=== PATIENT | female | born 1965 | race Caucasian/White ===

== ENCOUNTER 2022-11-23 10:45 | Emergency (ER) | payer SELFPAY ==
[2022-11-23 10:55] VITALS: BP 146/88; PULSE 93; RESP 22; TEMP 36.6; O2SAT 97; BMI 36.2
--- NOTE | 2022-11-23 11:10 | EXP.UTC ---
Discharge Plan Disposition Patient Disposition: Home, Self-Care Condition: Good Prescriptions Prescriptions: New penicillin V potassium 500 mg tablet 500 mg PO BID 10 Days Qty: 20 0RF No Action nitrofurantoin monohyd/m-cryst 100 mg capsule 100 mg PO Q12H 5 Days Qty: 10 0RF Rx Instructions: must administer with a meal/food Referrals Follow up/Referrals: Ariel Marvin MD [Primary Care Provider] - See instructions Activity Restrictions/Add. Instructions Additional Instructions/Restrictions: *Monitor Temp, Over the counter Motrin or Tylenol as directed/as needed Tylenol every 4 hours and Motrin every 6 hours (as long as your family doctor has told you that you can take it) for fever or pain. and straight to ER if unable to lower temp less than 101.0 after medication given *Warm salt water gargles may help to soothe the throat *Throat Lozenges? *Warm fluids like tea with honey may help to soothe the throat? *Sleep elevated *Humidifier/Vaporizer *If you did not take Penicillin shot or was unable to, start taking antibiotic immediately and make sure that you take it for the FULL length of time although you should start to feel better in 24-48 hours *change toothbrush and toothpaste 24-48 hours after starting to take antibiotics so you do not reinfect yourself Monitor Temp. Tylenol and/or Ibuprofen as needed. ER if fever is no less than 101 despite alternating Tylenol and Ibuprofen * Encourage fluids, water, Gatorade, powerade, pedialyte if /toddler/or child *Cold fluids, popsicles and ice cream may feel good on his throat Follow up IMMEDIATELY for new or worsening symptoms or no Noticeable improvement over the next 48-72 hours. 911 for difficulty breathing or swallowing Clinical Impressions Clinical Impression: Strep throat Stand Alone Forms Stand Alone Forms: Work/School Release Instructions Patient Instructions: DI for Strep Throat, Strep Throat, Penicillin V Potassium Discharge ED Provider: Elsie Silva [facility] HPI General Stated complaint: Sore throat headache drainage Mode of Arrival: Ambulatory Source of Information: Patient Limitations: No Limitations Time Seen by Provider: 11/23/22 11:10 Description of Symptoms (Recalled from Triage Doc. 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 States that on her throat started hurting so she went to the pharmacy and they tested her for strep throat and it was negative States that since then it has continued to get worse and this morning she noticed little white blister like areas on her throat so she came in to get it checked Related Data Previous Rx's Medication Instructions Recorded nitrofurantoin 100 mg PO Q12H UTI 5 days #10 caps 10/26/18 monohydrate/macrocrystals 100 mg capsule penicillin V potassium 500 mg 500 mg PO BID 10 days #20 tabs 11/23/22 tablet Allergies Allergy/AdvReac Type Severity Reaction Status Date / Time No Known Allergies Allergy Verified 10/26/18 19:42 Worker's Comp Is this a Worker's Comp case?: No [facility] Disclaimer: The information contained in this section may have been updated after the patient was seen, as this information can be updated by other users. Social History Smoking Status: Never smoker alcohol intake: current current occupational status: employed Travel in the last 8 weeks: None household members: family housing: house ROS Obtained: Yes All systems reviewed & no additional complaints except as documented and Yes Systems reviewed as
[2022-11-23 11:17] LABS: UTC Strep Screen (Rapid) Positive (Negative)
[2022-11-23 11:19] VITALS: BP 146/88; PULSE 93; RESP 22; TEMP 36.6; O2SAT 97
== END 2022-11-23 11:21 | disposition home or self-care (01) ==
PROVIDERS: Emergency Provider Nurse Practitioner; PCP Internal Medicine Adolescent Medicine
DX: J02.0 Streptococcal pharyngitis (principal)
CPT/HCPCS: 87880; 99212; 99213; G0463

== ENCOUNTER 2025-02-10 08:16 | Outpatient (CLI) | payer SELFPAY ==
--- NOTE | 2025-02-10 08:20 | CT_ITS ---
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 A noncontrast coronary calcium scan was performed. A CT attenuation threshold of 130 Hounsfield units (HU) was used for the detection of calcium in contiguous voxels of 1 sq mm in area to be counted as individual lesions. A tube voltage of 120 KVp was used. The patient received no medications prior to the coronary calcium CT. Image Reconstruction Transaxial images were reconstructed at 0.67 mm slide thickness. Data was reviewed interactively on an advanced workstation capable of 2 and 3-dimensional displays in all conventional reconstruction formats, including multiplanar reformations, maximum intensity projections, curved multiplanar reformations, and volume rendered reconstructions. When applicable, selected routine images describing the relevant coronary anatomy and pathology were saved and sent to PACS. Complications None Technical Quality Overall image quality was good. Total DLP (Dose-Length Product) is 197.9 mGy-cm. The reported value represents the total of one or more individual components during the CT acquisition of this date and at this time, and as such, the same value may appear in more than one CT report depending on the interpreting/reporting physicians. COMPARISON None FINDINGS CT Coronary Calcium Scoring LMA (Left Main Artery) = 0 LAD (Left Anterior Descending) = 82 LCX (Left Coronary Circumflex) = 0 RCA (Right Coronary Artery) = 0 Total Calcium Score = 82 using the AJ-130 method. There is no identifiable calcification in the aortic valve, mitral annulus or mitral valve, pericardium, or myocardium. IMPRESSION -Coronary artery calcification is present. -Total Calcium Score (Agatston Score) = 82 using the AJ-130 method. -The observed calcium score of 82 is at 89th percentile for subjects of the same age, sex, and race/ethnicity. The interpretation of the calcium heart score is based on the following continuum*: 0 = no calcified plaque detected (risk of coronary artery disease is very low ??? less than 5%) 1-10 = calcium detected in extremely minimal levels (risk of coronary diseases is still low ??? less than 10%) 11-100 = mild levels of plaque detected with certainty (mild or minimal narrowing of heart arteries is likely) 101-400 = definite,at least moderate levels of plaque detected (relatively high risk of a heart attack within 3-5 years) >401-999 = extensive levels of plaque detected (high risk of heart attack, high levels of vascular disease are present, high likelihood of at least one significant coronary narrowing) *The calcium heart score quantifies the burden of coronary calcification/plaque in the coronary arteries. The calcium heart score does not evaluate the presence or the burden of non-calcified (i.e. soft) plaque. The coronary and cardiac findings of this Coronary Calcium CT were reviewed, reported, and signed by Cuauhtemoc Wong MD (Chief Design Engineer). Conclusion Electronically signed by : La Wong MD 02/12/2025 21:20:07
== END 2025-02-10 23:59 | disposition home or self-care (01) ==
LOC: RAD 08:16
PROVIDERS: PCP Nurse Practitioner Family; Visit Provider Nurse Practitioner Family
DX: I25.10 Atherosclerotic heart disease of native coronary artery without angina pectoris (principal); Z82.49 Family history of ischemic heart disease and other diseases of the circulatory system
CPT/HCPCS: 75571

== ENCOUNTER 2025-06-01 14:12 | Outpatient (CLI) | payer SELFPAY ==
--- NOTE | 2025-06-01 14:14 | XR_ITS ---
FINAL REPORT CLINICAL HISTORY: Left knee pain FINDINGS: AP, lateral and oblique views of the left knee were obtained. There is no prior exam for comparison. There is no acute fracture or dislocation. There is degenerative joint disease most pronounced in the medial compartment. There is no acute soft tissue abnormality. IMPRESSION: Degenerative changes without acute osseous abnormality of the left knee. Reviewed, Interpreted and Dictated by Maria Esther Birmingham MD Transcribed by Barb Stewart Authenticated and . [facility]
== END 2025-06-01 23:59 | disposition home or self-care (01) ==
LOC: RAD 14:14
PROVIDERS: Visit Provider Physician Assistant Surgical
DX: M17.12 Unilateral primary osteoarthritis, left knee (principal)
CPT/HCPCS: 73562

== ENCOUNTER 2025-08-31 09:20 | Outpatient (CLI) | payer SELFPAY ==
--- NOTE | 2025-08-31 09:21 | XR_ITS ---
FINAL REPORT CLINICAL HISTORY: left knee pain COMPARISON: None FINDINGS: LEFT KNEE 3 views of the left knee were obtained. There is no acute fracture or dislocation. There is mild narrowing of the medial compartment. Sharpening of the tibial spines is noted. There are small osteophytes along the undersurface of the patella. Soft tissues are unremarkable. IMPRESSION: No acute bony abnormality. [id number] osteoarthritis. Reviewed, Interpreted and Dictated by Carlos Johnson MD Transcribed by Nessa Navarro Authenticated and . [facility]
--- NOTE | 2025-08-31 09:21 | XR_ITS ---
FINAL REPORT CLINICAL HISTORY: right knee pain COMPARISON: None FINDINGS: Three views of the right knee were obtained. There is no acute fracture or dislocation. There is moderate medial compartment joint space narrowing. Osteophytes are noted along the medial joint margin. There are tiny osteophytes along the undersurface of the patella.. Soft tissues are unremarkable. IMPRESSION: No acute bony abnormality. [id number] osteoarthritis. Reviewed, Interpreted and Dictated by Carlos Johnson MD Transcribed by Nessa Navarro Authenticated and [facility]
== END 2025-08-31 23:59 | disposition home or self-care (01) ==
LOC: RAD 09:21
PROVIDERS: PCP Nurse Practitioner Family; Visit Provider Physician Assistant Surgical
DX: M17.11 Unilateral primary osteoarthritis, right knee (principal); M17.12 Unilateral primary osteoarthritis, left knee
CPT/HCPCS: 73562